=== PATIENT | female | born 1950 | race Caucasian/White ===

== ENCOUNTER 2018-11-06 11:01 | Outpatient (RCR) | payer MEDICARE, OTHER, SELFPAY ==
[2018-11-06 12:16] VITALS: BP 145/77; PULSE 87; RESP 18; TEMP 36.4; BMI 44.9
--- NOTE | 2018-11-06 14:09 | PCM.WC.HP ---
(1) Surgical wound breakdown Status: Chronic Current Visit: Yes Code(s): T81.31XA - Disruption of external operation (surgical) wound, not elsewhere classified, initial encounter (2) Tobacco abuse Status: Chronic Current Visit: Yes Code(s): Z72.0 - Tobacco use History of Present Illness Chief Complaint: Nonhealing surgical wound breakdown. History of Wound: Ms. Sanchez is a 68-year-old who was referred here by orthopedic surgeon due to a nonhealing surgical wound breakdown. Surgery was said to be about 2 months ago and on removal of the stitch had breakdown of the wound. Thought to be due to infection, currently on Bactrim which she has been on for well with still no significant improvement. Some drainage. She denies chills, fever or otherwise feeling of unwell. Questionable history of ongoing right knee infection. Past Medical History Past Medical History: Chronic Problems Surgical wound breakdown (Chronic) Tobacco abuse (Chronic) Review of Systems Constitutional: Denies: Anorexia, Chills, Fever, Night Sweats Eyes: Denies: Blurred vision, Pain HEENT: Denies: Difficulty Swallowing Cardiovascular: Denies: Chest Pain, Chest Pressure Respiratory: Denies: Hemoptysis Gastrointestinal: Reports: Constipation. Denies: Abdominal Pain, Hematemesis, Vomiting Genitourinary: Denies: Hematuria - Physical Exam Vital Signs Temp Pulse Resp BP 97.5 F L 87 18 145/77 H 11/06/18 12:16 11/06/18 12:16 11/06/18 12:16 11/06/18 12:16 General: Alert, Oriented x3, Cooperative, No apparent distress HEENT: Atraumatic, Normocephalic Oral: Moist Mucosa Neck: Supple Lungs: Normal air movement Cardiovascular: Regular rate, Regular Rhythm, Normal S1, Normal S2 Abdomen: Soft, Non Tender, Obese Extremities: No cyanosis Skin: Ulcer/ Wound Wound Measurements and Assessment WC - Nurse 1 - General Ulcer Measurement Start: 11/06/18 12:04 Freq: Status: Active Protocol: Activity Type Activity Date Activity User E-Sign Co-Sign Detail Recorded Client Recorded Date Recorded By Document 11/06/18 12:16 DL [id number] 11/06/18 12:27 DL 11/06/18 12:16 Wound Center Nurse 1 [Ulcer Assessment] #1 right lateral knee -Current Size (cm) - Length 2.4 -Current Size (cm) - Width 1.1 -Current Size (cm) - Depth 1.0 -Total Square Cm 2.64 -Date of Last Picture (Recall this 11/06/18 field) -Photo Taken Yes -Undermining/Tunneling Yes -Undermining/Tunneling Starts (O' 1 clock) -Undermining/Tunneling Ends (O'clock) 4 -Maximum Distance (cm) 0.9 -Classification - Thickness Full Thickness with Exposed Support Structure -Exudate Amt Medium -Exudate Type Serosanguineous -Wound Margin Distinct, Outline Attached -Granulation Amt Medium (34-66%) -Granulation Quality Red -Slough/Fibrin Yes -Necrosis Amt Medium (34-66%) -Necrotic Tissue Type Adherent Slough -Structure Exposed Fat Layer Exposed -Texture (Doris-wound Skin Appearance) Assessed Scarring -Moisture (Doris-wound Skin Appearance Assessed ) -Color (Dorsi-wound Skin Appearance) Assessed -Temperature (Doris-wound Skin No Abnormality Appearance) (Pt Warm) -Tenderness on Palpation (Doris-wound No Skin Appearance) -Ulcer Cleansing Rinsed/ Irrigated with Saline -Foul Odor after Cleansing No -Anesthetic Used 4% Lidocaine Solution WC - Nurse 2 - General Ulcer CM Notes Start: 11/06/18 12:04 Freq: Status: Active Protocol: Activity Type Activity Date Activity User E-Sign Co-Sign Detail Recorded Client Recorded Date Recorded By Document 11/06/18 13:06 MW [id number] 11/06/18 13:15 MW 11/06/18 13:06 Wound Center Nurse 2 [Procedure/Treatment] -Time 13:06 -Correct Patient Yes -Correct Side, Site, Position Yes -Correct Procedure Yes -Procedure Performed Yes -Type of Procedure Debridement -Clinical Debridement Subcutaneous -Post Debridement Size (cm) - Length 2.2 -Post Debridement Size (cm) - Width 1.5 -Post Debridement Size (cm) - Depth 1.6 -Total Square Cm 3.30 -Wound/Ulcer Outcome Not Healed -Ulcer Cleansing Rinsed/ Irrigated with Saline -Foul Odor after Cleansing No -Bioengineered Tissue No -Bleeding Controlled with Pressure -Offloading No -Treatment Response Procedure Tolerated Well [See Physician Procedure note for Specifics] Pain Scale: 0-10 Numeric [Pain] -Is Patient Pain Free? Yes Musculoskeletal: No Muscle Wasting Neurological: Cranial nerves II-XII grossly intact Psych/Mental Status: Normal Affect Debridement Note Post-Debridement Measurements/Treatment WC - Nurse 2 - General Ulcer CM Notes Start: 11/06/18 12:04 Freq: Status: Active Protocol: Activity Type Activity Date Activity User E-Sign Co-Sign Detail Recorded Client Recorded Date Recorded By Document 11/06/18 13:06 MW [id number] 11/06/18 13:15 MW 11/06/18 13:06 Wound Center Nurse 2 #1 right lateral knee -Time 13:06 -Correct Patient Yes -Correct Side, Site, Position Yes -Correct Procedure Yes -Procedure Performed Yes -Type of Procedure Debridement -Clinical Debridement Subcutaneous -Post Debridement Size (cm) - Length 2.2 -Post Debridement Size (cm) - Width 1.5 -Post Debridement Size (cm) - Depth 1.6 -Total Square Cm 3.30 -Wound/Ulcer Outcome Not Healed -Ulcer Cleansing Rinsed/ Irrigated with Saline -Foul Odor after Cleansing No -Bioengineered Tissue No -Bleeding Controlled with Pressure -Offloading No -Treatment Response Procedure Tolerated Well Pain Scale: 0-10 Numeric Is Patient Pain Free? Yes Wound debrided: Right leg Wound Grade/Stage: Stage III Type of Debridement: Excisional debridement Anesthesia Used: 4% Lidocaine Solution Depth: Down to and including healthy tissue, in the subcutaneous layer Percentage of wound debrided: 100 Instrument Used: 5mm curette Tissue Removed: Slough and devitalized tissue Severity: Fat Layer Exposed Amount of bleeding with debridement: Mild Bleeding Controlled with: Pressure Patient tolerated procedure well Assessment/Plan Active Problems Surgical wound breakdown (Chronic) Tobacco abuse (Chronic) Assessment: Nonhealing surgical wound dehiscence of right lower extremity with fat layer exposed. Plan: Debridement done as documented above, procedure was well-tolerated. Moderate slough bordering appreciated however patient with significant tenderness on debridement. Cultures taken. Promogran with snap VAC over top. Leaving placed on Saturday for a nurse visit/change. Increased protein intake and smoking cessation strongly recommended. Also recommended to elevate her lower extremities when seated in bed. Her questions were answered and she was advised to call with any further questions or concerns. Follow-up in 1 week. This note was generated with [employer] software. It may contain incorrect words, spelling, and punctuation that were not noted in checking the note before signing.
--- NOTE | 2018-11-06 14:14 | HP.PCM_ITS ---
(1) Surgical wound breakdown Status: Chronic Current Visit: Yes Code(s): T81.31XA - Disruption of external operation (surgical) wound, not elsewhere classified, initial encounter (2) Tobacco abuse Status: Chronic Current Visit: Yes Code(s): Z72.0 - Tobacco use History of Present Illness Chief Complaint: Nonhealing surgical wound breakdown. History of Wound: Ms. Sanchez is a 68-year-old who was referred here by orthopedic surgeon due to a nonhealing surgical wound breakdown. Surgery was said to be about 2 months ago and on removal of the stitch had breakdown of the wound. Thought to be due to infection, currently on Bactrim which she has been on for well with still no significant improvement. Some drainage. She denies c hills, fever or otherwise feeling of unwell. Questionable history of ongoing right knee infection. Past Medical History Past Medical History: Chronic Problems Surgical wound breakdown (Chronic) Tobacco abuse (Chronic) Review of Systems Constitutional: Denies: Anorexia, Chills, Fever, Night Sweats Eyes: Denies: Blurred vision, Pain HEENT: Denies: Difficulty Swallowing Cardiovascular: Denies: Chest Pain, Chest Pressure Respiratory: Denies: Hemoptysis Gastrointestinal: Reports: Constipation. Denies: Abdominal Pain, Hematemesis, Vomiting Genitourinary: Denies: Hematuria - Physical Exam Vital Signs Temp Pulse Resp BP 97.5 F L 87 18 145/77 H 11/06/18 12:16 11/06/18 12:16 11/06/18 12:16 11/06/18 12:16 General: Alert, Oriented x3, Cooperative, No apparent distress HEENT: Atraumatic, Normocephalic Oral: Moist Mucosa Neck: Supple Lungs: Normal air movement Cardiovascular: Regular rate, Regular Rhythm, Normal S1, Normal S2 Abdomen: Soft, Non Tender, Obese Extremities: No cyanosis Skin: Ulcer/ Wound Wound Measurements and Assessment WC - Nurse 1 - General Ulcer Measurement Start: 11/06/18 12:04 Freq: Status: Active Protocol: Activity Type Activity Date Activity User E-Sign Co-Sign Detail Recorded Client Recorded Date Recorded By Document 11/06/18 12:16 DL [id number] 11/06/18 12:27 DL 11/06/18 12:16 Wound Center Nurse 1 [Ulcer Assessment] #1 right lateral knee -Current Size (cm) - Length 2.4 -Current Size (cm) - Width 1.1 -Current Size (cm) - Depth 1.0 -Total Square Cm 2.64 -Date of Last Picture (Recall this 11/06/18 field) -Photo Taken Yes -Undermining/Tunneling Yes -Undermining/Tunneling Starts (O' 1 clock) -Undermining/Tunneling Ends (O'clock) 4 -Maximum Distance (cm) 0.9 -Classification - Thickness Full Thickness with Exposed Support Structure -Exudate Amt Medium -Exudate Type Serosanguineous -Wound Margin Distinct, Outline Attached -Granulation Amt Medium (34-66%) -Granulation Quality Red -Slough/Fibrin Yes -Necrosis Amt Medium (34-66%) -Necrotic Tissue Type Adherent Slough -Structure Exposed Fat Layer Exposed -Texture (Doris-wound Skin Appearance) Assessed Scarring -Moisture (Doris-wound Skin Appearance Assessed ) -Color (Doris-wound Skin Appearance) Assessed -Temperature (Doris-wound Skin No Abnormality Appearance) (Pt Warm) -Tenderness on Palpation (Doris-wound No Skin Appearance) -Ulcer Cleansing Rinsed/ Irrigated with Saline -Foul Odor after Cleansing No -Anesthetic Used 4% Lidocaine Solution WC - Nurse 2 - General Ulcer CM Notes Start: 11/06/18 12:04 Freq: Status: Active Protocol: Activity Type Activity Date Activity User E-Sign Co-Sign Detail Recorded Client Recorded Date Recorded By Document 11/06/18 13:06 MW [id number] 11/06/18 13:15 MW 11/06/18 13:06 Wound Center Nurse 2 [Procedure/Treatment] -Time 13:06 -Correct Patient Yes -Correct Side, Site, Position Yes -Correct Procedure Yes -Procedure Performed Yes -Type of Procedure Debridement -Clinical Debridement Subcutaneous -Post Debridement Size (cm) - Length 2.2 -Post Debridement Size (cm) - Width 1.5 -Post Debridement Size (cm) - Depth 1.6 -Total Square Cm 3.30 -Wound/Ulcer Outcome Not Healed -Ulcer Cleansing Rinsed/ Irrigated with Saline -Foul Odor after Cleansing No -Bioengineered Tissue No -Bleeding Controlled with Pressure -Offloading No -Treatment Response Procedure Tolerated Well [See Physician Procedure note for Specifics] Pain Scale: 0-10 Numeric [Pain] -Is Patient Pain Free? Yes Musculoskeletal: No Muscle Wasting Neurological: Cranial nerves II-XII grossly intact Psych/Mental Status: Normal Affect Debridement Note Post-Debridement Measurements/Treatment WC - Nurse 2 - General Ulcer CM Notes Start: 11/06/18 12:04 Freq: Status: Active Protocol: Activity Type Activity Date Activity User E-Sign Co-Sign Detail Recorded Client Recorded Date Recorded By Document 11/06/18 13:06 MW [id number] 11/06/18 13:15 MW 11/06/18 13:06 Wound Center Nurse 2 #1 right lateral knee -Time 13:06 -Correct Patient Yes -Correct Side, Site, Position Yes -Correct Procedure Yes -Procedure Performed Yes -Type of Procedure Debridement -Clinical Debridement Subcutaneous -Post Debridement Size (cm) - Length 2.2 -Post Debridement Size (cm) - Width 1.5 -Post Debridement Size (cm) - Depth 1.6 -Total Square Cm 3.30 -Wound/Ulcer Outcome Not Healed -Ulcer Cleansing Rinsed/ Irrigated with Saline -Foul Odor after Cleansing No -Bioengineered Tissue No -Bleeding Controlled with Pressure -Offloading No -Treatment Response Procedure Tolerated Well Pain Scale: 0-10 Numeric Is Patient Pain Free? Yes Wound debrided: Right leg Wound Grade/Stage: Stage III Type of Debridement: Excisional debridement Anesthesia Used: 4% Lidocaine Solution Depth: Down to and including healthy tissue, in the subcutaneous layer Percentage of wound debrided: 100 Instrument Used: 5mm curette Tissue Removed: Slough and devitalized tissue Severity: Fat Layer Exposed Amount of bleeding with debridement: Mild Bleeding Controlled with: Pressure Patient tolerated procedure well Assessment/Plan Active Problems Surgical wound breakdown (Chronic) Tobacco abuse (Chronic) Assessment: Nonhealing surgical wound dehiscence of right lower extremity with fat layer exposed. Plan: Debridement done as documented above, procedure was well-tolerated. Moderate slough bordering appreciated however patient with significant tenderness on debridement. Cultures taken. Promogran with snap VAC over top. Leaving placed on Saturday for a nurse visit/change. Increased protein intake and smoking cessation strongly recommended. Also recommended to elevate her lower extremities when seated in bed. Her questions were answered and she was advised to call with any further questions or concerns. Follow-up in 1 week. This note was generated with [employer] software. It may contain incorrect wo rds, spelling, and punctuation that were not noted in checking the note before signing.
== END 2018-11-07 23:59 ==
LOC: WC 11:01
PROVIDERS: Family Provider Internal Medicine; PCP Internal Medicine; Visit Provider Internal Medicine
DX: T81.31XA Disruption of external operation (surgical) wound, not elsewhere classified, initial encounter (principal); Y83.8 Other surgical procedures as the cause of abnormal reaction of the patient, or of later complication, without mention of misadventure at the time of the procedure; Z72.0 Tobacco use
CPT/HCPCS: 11042; 87070; 87075; 87205; 97607; 99203; G0463

== ENCOUNTER 2018-11-21 10:00 | Outpatient (RCR) | payer MEDICARE, OTHER, SELFPAY ==
[2018-11-08 01:30] VITALS: BP 145/77; PULSE 87; RESP 18; TEMP 36.4
[2018-11-10 12:56] VITALS: BMI 44.9
[2018-11-13 09:57] VITALS: BP 147/85; PULSE 84; RESP 20; TEMP 36; BMI 44.9
--- NOTE | 2018-11-13 11:48 | PCM.WC.PN ---
(1) Surgical wound breakdown Status: Chronic Current Visit: Yes Code(s): T81.31XA - Disruption of external operation (surgical) wound, not elsewhere classified, initial encounter (2) Tobacco abuse Status: Chronic Current Visit: No Code(s): Z72.0 - Tobacco use Type of Wound Chief Complaint: Nonhealing surgical wound breakdown. History of Wound: Ms. Sanchez is a 68-year-old who was referred here by orthopedic surgeon due to a nonhealing surgical wound breakdown. Surgery was said to be about 2 months ago and on removal of the stitch had breakdown of the wound. Thought to be due to infection, currently on Bactrim which she has been on for well with still no significant improvement. Some drainage. She denies chills, fever or otherwise feeling of unwell. Questionable history of ongoing right knee infection. Progress of Wound: mproving. No new concersn at this time. - Physical Exam Vital Signs Temp Pulse Resp BP 96.8 F L 84 20 H 147/85 H 11/13/18 09:57 11/13/18 09:57 11/13/18 09:57 11/13/18 09:57 General: Alert, Oriented x3, Cooperative, No apparent distress HEENT: Atraumatic, Normocephalic Oral: Moist Mucosa Neck: Supple Lungs: Normal air movement Extremities: No cyanosis Skin: Ulcer/ Wound Wound Measurements and Assessment WC - Nurse 1 - General Ulcer Measurement Start: 11/10/18 12:55 Freq: Status: Active Protocol: Activity Type Activity Date Activity User E-Sign Co-Sign Detail Recorded Client Recorded Date Recorded By Document 11/10/18 12:56 DL [id number] 11/10/18 12:59 DL Document 11/13/18 09:57 DL [id number] 11/13/18 10:06 DL 11/10/18 11/13/18 12:56 09:57 Wound Center Nurse 1 [Ulcer Assessment] #1 right lateral knee -Current Size (cm) - Length 2 -Current Size (cm) - Width 0.9 -Current Size (cm) - Depth 0.7 -Total Square Cm 1.8 -Photo Taken No -Undermining/Tunneling Starts (O' 1 clock) -Undermining/Tunneling Ends (O'clock) 2 -Maximum Distance (cm) 0.6 -Circular Undermining No -Exudate Amt Small None Present -Exudate Type Serosanguineous Serosanguineous -Wound Margin Thickened Distinct, Outline Attached -Granulation Amt Large (67-100%) Large (67-100%) -Granulation Quality Red Red -Necrosis Amt Small (1-33%) Small (1-33%) -Necrotic Tissue Type Adherent Slough Adherent Slough -Structure Exposed N/A N/A -Texture (Doris-wound Skin Appearance) Scarring Scarring -Moisture (Doris-wound Skin Appearance Dry/Scaly Maceration ) -Color (Doris-wound Skin Appearance) No Abnormality No Abnormality -Temperature (Doris-wound Skin No Abnormality No Abnormality Appearance) (Pt Warm) (Pt Warm) -Tenderness on Palpation (Doris-wound No Yes Skin Appearance) -Ulcer Cleansing Wound Cleanser Wound Cleanser -Foul Odor after Cleansing No No -Anesthetic Used 4% Lidocaine Solution [Edema Assessment] -Right Calf (cm) 47 -Right Ankle (cm) 22.5 WC - Nurse 2 - General Ulcer CM Notes Start: 11/10/18 12:55 Freq: Status: Active Protocol: Activity Type Activity Date Activity User E-Sign Co-Sign Detail Recorded Client Recorded Date Recorded By Document 11/13/18 10:28 MW [id number] 11/13/18 10:30 MW 11/13/18 10:28 Wound Center Nurse 2 [Procedure/Treatment] #1 right lateral knee -Time 10:28 -Correct Patient Yes -Correct Side, Site, Position Yes -Correct Procedure Yes -Procedure Performed Yes -Type of Procedure Debridement -Clinical Debridement Subcutaneous -Post Debridement Size (cm) - Length 2.0 -Post Debridement Size (cm) - Width 1.3 -Post Debridement Size (cm) - Depth 1.0 -Total Square Cm 2.60 -Wound/Ulcer Outcome Not Healed -Ulcer Cleansing Rinsed/ Irrigated with Saline -Foul Odor after Cleansing No -Bioengineered Tissue No -Bleeding Controlled with Pressure -Offloading No -Treatment Response Procedure Tolerated Well [See Physician Procedure note for Specifics] Pain Scale: 0-10 Numeric [Pain] -Is Patient Pain Free? Yes Musculoskeletal: No Muscle Wasting Neurological: Cranial nerves II-XII grossly intact Psych/Mental Status: Normal Affect Debridement Note Post-Debridement Measurements/Treatment WC - Nurse 2 - General Ulcer CM Notes Start: 11/10/18 12:55 Freq: Status: Active Protocol: Activity Type Activity Date Activity User E-Sign Co-Sign Detail Recorded Client Recorded Date Recorded By Document 11/13/18 10:28 MW [id number] 11/13/18 10:30 MW 11/13/18 10:28 Wound Center Nurse 2 #1 right lateral knee -Time 10:28 -Correct Patient Yes -Correct Side, Site, Position Yes -Correct Procedure Yes -Procedure Performed Yes -Type of Procedure Debridement -Clinical Debridement Subcutaneous -Post Debridement Size (cm) - Length 2.0 -Post Debridement Size (cm) - Width 1.3 -Post Debridement Size (cm) - Depth 1.0 -Total Square Cm 2.60 -Wound/Ulcer Outcome Not Healed -Ulcer Cleansing Rinsed/ Irrigated with Saline -Foul Odor after Cleansing No -Bioengineered Tissue No -Bleeding Controlled with Pressure -Offloading No -Treatment Response Procedure Tolerated Well Pain Scale: 0-10 Numeric Is Patient Pain Free? Yes Wound debrided: Right leg Wound Grade/Stage: Stage III Type of Debridement: Excisional debridement Anesthesia Used: 4% Lidocaine Solution Depth: Down to and including healthy tissue, in the subcutaneous layer Percentage of wound debrided: 100 Instrument Used: 5mm curette Tissue Removed: Slough and devitalized tissue Severity: Fat Layer Exposed Amount of bleeding with debridement: Mild Bleeding Controlled with: Pressure Patient tolerated procedure well Assessment/Plan Active Problems Surgical wound breakdown (Chronic) Assessment: Nonhealing surgical wound dehiscence of right lower extremity with fat layer exposed. Plan: Improving. No new concerns. Debridement done as documented above, procedure was well-tolerated. Cultures with no growth. Continue Promogran with snap VAC over top. Follow up on Saturday for a nurse visit/change. Increased protein intake and smoking cessation strongly recommended. Also recommended to elevate her lower extremities when seated in bed. Her questions were answered and she was advised to call with any further questions or concerns. Follow-up in 1 week for a courtesy visit. This note was generated with [employer] software. It may contain incorrect words, spelling, and punctuation that were not noted in checking the note before signing.
--- NOTE | 2018-11-13 11:52 | PN.PCM_ITS ---
(1) Surgical wound breakdown Status: Chronic Current Visit: Yes Code(s): T81.31XA - Disruption of external operation (surgical) wound, not elsewhere classified, initial encounter (2) Tobacco abuse Status: Chronic Current Visit: No Code(s): Z72.0 - Tobacco use Type of Wound Chief Complaint: Nonhealing surgical wound breakdown. History of Wound: Ms. Sanchez is a 68-year-old who was referred here by orthopedic surgeon due to a nonhealing surgical wound breakdown. Surgery was said to be about 2 months ago and on removal of the stitch had breakdown of the wound. Thought to be due to infection, currently on Bactrim which she has been on for well with still no significant improvement. Some drainage. She denies chills, fever or otherwise feeling of unwell. Questionable history of ongoing right knee infection. Progress of Wound: mproving. No new concersn at this time. - Physical Exam Vital Signs Temp Pulse Resp BP 96.8 F L 84 20 H 147/85 H 11/13/18 09:57 11/13/18 09:57 11/13/18 09:57 11/13/18 09:57 General: Alert, Oriented x3, Cooperative, No apparent distress HEENT: Atraumatic, Normocephalic Oral: Moist Mucosa Neck: Supple Lungs: Normal air movement Extremities: No cyanosis Skin: Ulcer/ Wound Wound Measurements and Assessment WC - Nurse 1 - General Ulcer Measurement Start: 11/10/18 12:55 Freq: Status: Active Protocol: Activity Type Activity Date Activity User E-Sign Co-Sign Detail Recorded Client Recorded Date Recorded By Document 11/10/18 12:56 DL [id number] 11/10/18 12:59 DL Document 11/13/18 09:57 DL [id number] 11/13/18 10:06 DL 11/10/18 11/13/18 12:56 09:57 Wound Center Nurse 1 [Ulcer Assessment] #1 right lateral knee -Current Size (cm) - Length 2 -Current Size (cm) - Width 0.9 -Current Size (cm) - Depth 0.7 -Total Square Cm 1.8 -Photo Taken No -Undermining/Tunneling Starts (O' 1 clock) -Undermining/Tunneling Ends (O'clock) 2 -Maximum Distance (cm) 0.6 -Circular Undermining No -Exudate Amt Small None Present -Exudate Type Serosanguineous Serosanguineous -Wound Margin Thickened Distinct, Outline Attached -Granulation Amt Large (67-100%) Large (67-100%) -Granulation Quality Red Red -Necrosis Amt Small (1-33%) Small (1-33%) -Necrotic Tissue Type Adherent Slough Adherent Slough -Structure Exposed N/A N/A -Texture (Doris-wound Skin Appearance) Scarring Scarring -Moisture (Doris-wound Skin Appearance Dry/Scaly Maceration ) -Color (Doris-wound Skin Appearance) No Abnormality No Abnormality -Temperature (Doris-wound Skin No Abnormality No Abnormality Appearance) (Pt Warm) (Pt Warm) -Tenderness on Palpation (Doris-wound No Yes Skin Appearance) -Ulcer Cleansing Wound Cleanser Wound Cleanser -Foul Odor after Cleansing No No -Anesthetic Used 4% Lidocaine Solution [Edema Assessment] -Right Calf (cm) 47 -Right Ankle (cm) 22.5 WC - Nurse 2 - General Ulcer CM Notes Start: 11/10/18 12:55 Freq: Status: Active Protocol: Activity Type Activity Date Activity User E-Sign Co-Sign Detail Recorded Client Recorded Date Recorded By Document 11/13/18 10:28 MW [id number] 11/13/18 10:30 MW 11/13/18 10:28 Wound Center Nurse 2 [Procedure/Treatment] #1 right lateral knee -Time 10:28 -Correct Patient Yes -Correct Side, Site, Position Yes -Correct Procedure Yes -Procedure Performed Yes -Type of Procedure Debridement -Clinical Debridement Subcutaneous -Post Debridement Size (cm) - Length 2.0 -Post Debridement Size (cm) - Width 1.3 -Post Debridement Size (cm) - Depth 1.0 -Total Square Cm 2.60 -Wound/Ulcer Outcome Not Healed -Ulcer Cleansing Rinsed/ Irrigated with Saline -Foul Odor after Cleansing No -Bioengineered Tissue No -Bleeding Controlled with Pressure -Offloading No -Treatment Response Procedure Tolerated Well [See Physician Procedure note for Specifics] Pain Scale: 0-10 Numeric [Pain] -Is Patient Pain Free? Yes Musculoskeletal: No Muscle Wasting Neurological: Cranial nerves II-XII grossly intact Psych/Mental Status: Normal Affect Debridement Note Post-Debridement Measurements/Treatment WC - Nurse 2 - General Ulcer CM Notes Start: 11/10/18 12:55 Freq: Status: Active Protocol: Activity Type Activity Date Activity User E-Sign Co-Sign Detail Recorded Client Recorded Date Recorded By Document 11/13/18 10:28 MW [id number] 11/13/18 10:30 MW 11/13/18 10:28 Wound Center Nurse 2 #1 right lateral knee -Time 10:28 -Correct Patient Yes -Correct Side, Site, Position Yes -Correct Procedure Yes -Procedure Performed Yes -Type of Procedure Debridement -Clinical Debridement Subcutaneous -Post Debridement Size (cm) - Length 2.0 -Post Debridement Size (cm) - Width 1.3 -Post Debridement Size (cm) - Depth 1.0 -Total Square Cm 2.60 -Wound/Ulcer Outcome Not Healed -Ulcer Cleansing Rinsed/ Irrigated with Saline -Foul Odor after Cleansing No -Bioengineered Tissue No -Bleeding Controlled with Pressure -Offloading No -Treatment Response Procedure Tolerated Well Pain Scale: 0-10 Numeric Is Patient Pain Free? Yes Wound debrided: Right leg Wound Grade/Stage: Stage III Type of Debridement: Excisional debridement Anesthesia Used: 4% Lidocaine Solution Depth: Down to and including healthy tissue, in the subcutaneous layer Percentage of wound debrided: 100 Instrument Used: 5mm curette Tissue Removed: Slough and devitalized tissue Severity: Fat Layer Exposed Amount of bleeding with debridement: Mild Bleeding Controlled with: Pressure Patient tolerated procedure well Assessment/Plan Active Problems Surgical wound breakdown (Chronic) Assessment: Nonhealing surgical wound dehiscence of right lower extremity with fat layer exposed. Plan: Improving. No new concerns. Debridement done as documented above, pro cedure was well-tolerated. Cultures with no growth. Continue Promogran with snap VAC over top. Follow up on Saturday for a nurse visit/change. Increased protein intake and smoking cessation strongly recommended. Also recommended to elevate her lower extremities when seated in bed. Her questions were answered and she was advised to call with any further questions or concerns. Follow-up in 1 week for a courtesy visit. This note was generated with [employer] dictation software. It may contain incorrect words, spelling, and punctuation that were not noted in checking the note before signing.
[2018-11-21 09:42] VITALS: BP 156/87; PULSE 94; RESP 18; TEMP 36.9; BMI 44.9
--- NOTE | 2018-11-21 17:37 | PCM.WC.HP ---
(1) Surgical wound breakdown Status: Chronic Current Visit: Yes Qualifiers: Encounter type: subsequent encounter Qualified Code(s): T81.31XD - Disruption of external operation (surgical) wound, not elsewhere classified, subsequent encounter Code(s): T81.31XA - Disruption of external operation (surgical) wound, not elsewhere classified, initial encounter (2) Tobacco abuse Status: Chronic Current Visit: Yes Code(s): Z72.0 - Tobacco use History of Present Illness Date of Service: 11/21/18 Chief Complaint: Nonhealing surgical wound breakdown. History of Wound: Ms. Sanchez is a 68-year-old who was referred here by her orthopedic surgeon due to a nonhealing surgical wound breakdown. Surgery was said to be about 2 months ago and on removal of the stitch had breakdown of the wound. This was thought to be due to infection, she has completed Bactrim. She has heavy drainage. She denies chills, fever or otherwise feeling unwell. She reports that there were screws in her knee that were infected and removed which were causing the infection. She is seen today as a courtesy visit for Dr. Watson. She did well with snap vac and denies any concerns today. Past Medical History Past Medical History: Chronic Problems Surgical wound breakdown (Chronic) Tobacco abuse (Chronic) Past Medical History: Cancer Surgical History: total knee arthroplasty Allergies/Adverse Reactions: Allergies No Known Allergies Allergy (Verified 11/21/18 18:03) Home Medications: Ambulatory Orders Medication Instructions Recorded Celebrex 11/21/18 - Family History Maternal No pertinent history Paternal No pertinent history Lives: Alone Smoking Status: Current every day smoker Tobacco Use: Cigarettes Alcohol: None Drugs: None Review of Systems Constitutional: Denies: Chills, Fever, Weight Change Eyes: Denies: Pain, Vision Change HEENT: Denies: Difficulty Hearing, Difficulty Swallowing, Sinus Congestion Cardiovascular: Denies: Chest Pain, Palpitations Respiratory: Denies: Cough, Shortness of Breath Gastrointestinal: Denies: Diarrhea, Nausea, Vomiting Genitourinary: Denies: Dysuria, Hematuria Musculoskeletal: Reports: Joint Pain, Joint stiffness Skin: Reports: Wounds Endocrine: Denies: Heat/ Cold Intolerance, Polydipsia, Polyuria Hematologic/ Lymphatic: Denies: Easy Bruising, Easy Bleeding - Physical Exam Vital Signs Temp Pulse Resp BP 98.4 F 94 18 156/87 H 11/21/18 09:42 11/21/18 09:42 11/21/18 09:42 11/21/18 09:42 General: Alert, Oriented x3, Cooperative, No apparent distress HEENT: Atraumatic, Normocephalic Oral: Moist Mucosa Neck: Supple Lungs: Clear to auscultation Abdomen: Obese Extremities: Edema Skin: Ulcer/ Wound Wound Measurements and Assessment WC - Nurse 1 - General Ulcer Measurement Start: 11/10/18 12:55 Freq: Status: Active Protocol: Activity Type Activity Date Activity User E-Sign Co-Sign Detail Recorded Client Recorded Date Recorded By Document 11/21/18 09:42 [facility] [id number] 11/21/18 09:48 [facility] 11/21/18 09:42 Wound Center Nurse 1 [Ulcer Assessment] #1 right lateral knee -Combined with other wound No -Current Size (cm) - Length 1.6 -Current Size (cm) - Width 0.8 -Current Size (cm) - Depth 0.5 -Total Square Cm 1.28 -Photo Taken No -Epithelialization None Present -Tunneling No -Undermining/Tunneling No -Circular Undermining No -Exudate Amt Small -Exudate Type Serosanguineous -Wound Margin Distinct, Outline Attached -Granulation Amt Large (67-100%) -Granulation Quality Red -Slough/Fibrin No -Necrosis Amt None Present (0 %) -Structure Exposed None/Limited to Skin Breakdown -Texture (Doris-wound Skin Appearance) Scarring -Moisture (Doris-wound Skin Appearance Maceration ) -Color (Doris-wound Skin Appearance) Palor -Temperature (Doris-wound Skin No Abnormality Appearance) (Pt Warm) -Tenderness on Palpation (Doris-wound No Skin Appearance) -Ulcer Cleansing Rinsed/ Irrigated with Saline -Foul Odor after Cleansing No -Anesthetic Used 5% Lidocaine Gel [Edema Assessment] -Lower Limb Edema Present No WC - Nurse 2 - General Ulcer CM Notes Start: 11/10/18 12:55 Freq: Status: Active Protocol: Activity Type Activity Date Activity User E-Sign Co-Sign Detail Recorded Client Recorded Date Recorded By Document 11/21/18 10:20 DV [id number] 11/21/18 10:23 DV 11/21/18 10:20 Wound Center Nurse 2 [Procedure/Treatment] #1 right lateral knee -Time 10:21 -Correct Patient Yes -Correct Side, Site, Position Yes -Correct Procedure Yes -Procedure Performed Yes -Type of Procedure Debridement -Clinical Debridement Subcutaneous -Post Debridement Size (cm) - Length 1.8 -Post Debridement Size (cm) - Width 1.3 -Post Debridement Size (cm) - Depth 0.7 -Total Square Cm 2.34 -Wound/Ulcer Outcome Not Healed -Ulcer Cleansing Rinsed/ Irrigated with Saline -Foul Odor after Cleansing No -Bioengineered Tissue No -Bleeding Controlled with Pressure -Offloading No -Treatment Response Procedure Tolerated Well [See Physician Procedure note for Specifics] Pain Scale: 0-10 Numeric [Pain] -Is Patient Pain Free? Yes Psych/Mental Status: Normal Affect, Appropriate Debridement Note Post-Debridement Measurements/Treatment WC - Nurse 2 - General Ulcer CM Notes Start: 11/10/18 12:55 Freq: Status: Active Protocol: Activity Type Activity Date Activity User E-Sign Co-Sign Detail Recorded Client Recorded Date Recorded By Document 11/13/18 10:28 MW [id number] 11/13/18 10:30 MW Document 11/21/18 10:20 DV [id number] 11/21/18 10:23 DV 11/13/18 11/21/18 10:28 10:20 Wound Center Nurse 2 #1 right lateral knee -Time 10:28 10:21 -Correct Patient Yes Yes -Correct Side, Site, Position Yes Yes -Correct Procedure Yes Yes -Procedure Performed Yes Yes -Type of Procedure Debridement Debridement -Clinical Debridement Subcutaneous Subcutaneous -Post Debridement Size (cm) - Length 2.0 1.8 -Post Debridement Size (cm) - Width 1.3 1.3 -Post Debridement Size (cm) - Depth 1.0 0.7 -Total Square Cm 2.60 2.34 -Wound/Ulcer Outcome Not Healed Not Healed -Ulcer Cleansing Rinsed/ Rinsed/ Irrigated with Irrigated with Saline Saline -Foul Odor after Cleansing No No -Bioengineered Tissue No No -Bleeding Controlled with Pressure Pressure -Offloading No No -Treatment Response Procedure Procedure Tolerated Well Tolerated Well Pain Scale: 0-10 Numeric Is Patient Pain Free? Yes Yes Wound debrided: right lateral knee Laterality: Right Type of Debridement: Excisional debridement Anesthesia Used: 4% Lidocaine Solution, 5% Lidocaine Gel Depth: Down to and including healthy tissue, in the subcutaneous layer Percentage of wound debrided: 100 Instrument Used: 5mm curette Tissue Removed: yellow slough, devitalized tissue Severity: Fat Layer Exposed Amount of bleeding with debridement: Mild Bleeding Controlled with: Compression and gauze Patient tolerated procedure well Assessment/Plan Active Problems Surgical wound breakdown (Chronic) Tobacco abuse (Chronic) Assessment: Nonhealing surgical wound dehiscence of right lower extremity with fat layer exposed. Plan: Yi is showing improvement. Debridement done as documented above, procedure was well-tolerated. Continue Promogran with snap VAC over top. Follow up 1 week for snap vac change. Increased protein intake and smoking cessation strongly recommended. Also recommended to elevate her lower extremities when seated in bed. Her questions were answered and she was advised to call with any further questions or concerns. Follow-up in 1 week. This note was generated with [employer] dictation software. It may contain incorrect words, spelling, and punctuation that were not noted in checking the note before signing.
--- NOTE | 2018-11-21 17:41 | HP.PCM_ITS ---
(1) Surgical wound breakdown Status: Chronic Current Visit: Yes Qualifiers: Encounter type: subsequent encounter Qualified Code(s): T81.31XD - Disruption of external operation (surgical) wound, not elsewhere classified, subsequent encounter Code(s): T81.31XA - Disruption of external operation (surgical) wound, not elsewhere classified, initial encounter (2) Tobacco abuse Status: Chronic Current Visit: Yes Code(s): Z72.0 - Tobacco use History of Present Illness Date of Service: 11/21/18 Chief Complaint: Nonhealing surgical wound breakdown. History of Wound: Ms. Sanchez is a 68-year-old who was referred here by her orthopedic surgeon due to a nonhealing surgical wound breakdown. Surgery was said to be about 2 months ago and on removal of the stitch had breakdown of the wound. This was thought to be due to infection, she has completed Bactrim. She has heavy drainage. She denies chills, fever or otherwise feeling unwell. She reports that there were screws in her knee that were infected and removed which were causing the infection. She is seen today as a courtesy visit for Dr. Watson. She did well with snap vac and denies any concerns today. Past Medical History Past Medical History: Chronic Problems Surgical wound breakdown (Chronic) Tobacco abuse (Chronic) Past Medical History: Cancer Surgical History: total knee arthroplasty Allergies/Adverse Reactions: Allergies No Known Allergies Allergy (Verified 11/21/18 18:03) Home Medications: Ambulatory Orders Medication Instructions Recorded Celebrex 11/21/18 - Family History Maternal No pertinent history Paternal No pertinent history Lives: Alone Smoking Status: Current every day smoker Tobacco Use: Cigarettes Alcohol: None Drugs: None Review of Systems Constitutional: Denies: Chills, Fever, Weight Change Eyes: Denies: Pain, Vision Change HEENT: Denies: Difficulty Hearing, Difficulty Swallowing, Sinus Congestion Cardiovascular: Denies: Chest Pain, Palpitations Respiratory: Denies: Cough, Shortness of Breath Gastrointestinal: Denies: Diarrhea, Nausea, Vomiting Genitourinary: Denies: Dysuria, Hematuria Musculoskeletal: Reports: Joint Pain, Joint stiffness Skin: Reports: Wounds Endocrine: Denies: Heat/ Cold Intolerance, Polydipsia, Polyuria Hematologic/ Lymphatic: Denies: Easy Bruising, Easy Bleeding - Physical Exam Vital Signs Temp Pulse Resp BP 98.4 F 94 18 156/87 H 11/21/18 09:42 11/21/18 09:42 11/21/18 09:42 11/21/18 09:42 General: Alert, Oriented x3, Cooperative, No apparent distress HEENT: Atraumatic, Normocephalic Oral: Moist Mucosa Neck: Supple Lungs: Clear to auscultation Abdomen: Obese Extremities: Edema Skin: Ulcer/ Wound Wound Measurements and Assessment WC - Nurse 1 - General Ulcer Measurement Start: 11/10/18 12:55 Freq: Status: Active Protocol: Activity Type Activity Date Activity User E-Sign Co-Sign Detail Recorded Client Recorded Date Recorded By Document 11/21/18 09:42 [facility] [id number] 11/21/18 09:48 [facility] 11/21/18 09:42 Wound Center Nurse 1 [Ulcer Assessment] #1 right lateral knee -Combined with other wound No -Current Size (cm) - Length 1.6 -Current Size (cm) - Width 0.8 -Current Size (cm) - Depth 0.5 -Total Square Cm 1.28 -Photo Taken No -Epithelialization None Present -Tunneling No -Undermining/Tunneling No -Circular Undermining No -Exudate Amt Small -Exudate Type Serosanguineous -Wound Margin Distinct, Outline Attached -Granulation Amt Large (67-100%) -Granulation Quality Red -Slough/Fibrin No -Necrosis Amt None Present (0 %) -Structure Exposed None/Limited to Skin Breakdown -Texture (Doris-wound Skin Appearance) Scarring -Moisture (Doris-wound Skin Appearance Maceration ) -Color (Doris-wound Skin Appearance) Palor -Temperature (Doris-wound Skin No Abnormality Appearance) (Pt Warm) -Tenderness on Palpation (Doris-wound No Skin Appearance) -Ulcer Cleansing Rinsed/ Irrigated with Saline -Foul Odor after Cleansing No -Anesthetic Used 5% Lidocaine Gel [Edema Assessment] -Lower Limb Edema Present No WC - Nurse 2 - General Ulcer CM Notes Start: 11/10/18 12:55 Freq: Status: Active Protocol: Activity Type Activity Date Activity User E-Sign Co-Sign Detail Recorded Client Recorded Date Recorded By Document 11/21/18 10:20 DV [id number] 11/21/18 10:23 DV 11/21/18 10:20 Wound Center Nurse 2 [Procedure/Treatment] #1 right lateral knee -Time 10:21 -Correct Patient Yes -Correct Side, Site, Position Yes -Correct Procedure Yes -Procedure Performed Yes -Type of Procedure Debridement -Clinical Debridement Subcutaneous -Post Debridement Size (cm) - Length 1.8 -Post Debridement Size (cm) - Width 1.3 -Post Debridement Size (cm) - Depth 0.7 -Total Square Cm 2.34 -Wound/Ulcer Outcome Not Healed -Ulcer Cleansing Rinsed/ Irrigated with Saline -Foul Odor after Cleansing No -Bioengineered Tissue No -Bleeding Controlled with Pressure -Offloading No -Treatment Response Procedure Tolerated Well [See Physician Procedure note for Specifics] Pain Scale: 0-10 Numeric [Pain] -Is Patient Pain Free? Yes Psych/Mental Status: Normal Affect, Appropriate Debridement Note Post-Debridement Measurements/Treatment WC - Nurse 2 - General Ulcer CM Notes Start: 11/10/18 12:55 Freq: Status: Active Protocol: Activity Type Activity Date Activity User E-Sign Co-Sign Detail Recorded Client Recorded Date Recorded By Document 11/13/18 10:28 MW [id number] 11/13/18 10:30 MW Document 11/21/18 10:20 DV [id number] 11/21/18 10:23 DV 11/13/18 11/21/18 10:28 10:20 Wound Center Nurse 2 #1 right lateral knee -Time 10:28 10:21 -Correct Patient Yes Yes -Correct Side, Site, Position Yes Yes -Correct Procedure Yes Yes -Procedure Performed Yes Yes -Type of Procedure Debridement Debridement -Clinical Debridement Subcutaneous Subcutaneous -Post Debridement Size (cm) - Length 2.0 1.8 -Post Debridement Size (cm) - Width 1.3 1.3 -Post Debridement Size (cm) - Depth 1.0 0.7 -Total Square Cm 2.60 2.34 -Wound/Ulcer Outcome Not Healed Not Healed -Ulcer Cleansing Rinsed/ Rinsed/ Irrigated with Irrigated with Saline Saline -Foul Odor after Cleansing No No -Bioengineered Tissue No No -Bleeding Controlled with Pressure Pressure -Offloading No No -Treatment Response Procedure Procedure Tolerated Well Tolerated Well Pain Scale: 0-10 Numeric Is Patient Pain Free? Yes Yes Wound debrided: right lateral knee Laterality: Right Type of Debridement: Excisional debridement Anesthesia Used: 4% Lidocaine Solution, 5% Lidocaine Gel Depth: Down to and including healthy tissue, in the subcutaneous layer Percentage of wound debrided: 100 Instrument Used: 5mm curette Tissue Removed: yellow slough, devitalized tissue Severity: Fat Layer Exposed Amount of bleeding with debridement: Mild Bleeding Controlled with: Compression and gauze Patient tolerated procedure well Assessment/Plan Active Problems Surgical wound breakdown (Chronic) Tobacco abuse (Chronic) Assessment: Nonhealing surgical wound dehiscence of right lower extremity with fat layer exposed. Plan: Yi is showing improvement. Debridement done as documented above, procedure was well-tolerated. Continue Promogran with snap VAC over top. Follow up 1 week for snap vac change. Increased protein intake and smoking cessation strongly recommended. Also recommended to elevate her lower extremities when seated in bed. Her questions were answered and she was advised to call with any further questions or concerns. Follow-up in 1 week. This note was generated with [employer] dictation software. It may contain incorrect words, spelling, and punctuation that were not noted in checking the note before signing.
== END 2018-12-07 23:59 ==
LOC: WC 10:00
PROVIDERS: Family Provider Internal Medicine; PCP Internal Medicine; Visit Provider Internal Medicine
DX: T81.31XA Disruption of external operation (surgical) wound, not elsewhere classified, initial encounter (principal); Y83.8 Other surgical procedures as the cause of abnormal reaction of the patient, or of later complication, without mention of misadventure at the time of the procedure; Z72.0 Tobacco use
CPT/HCPCS: 11042; 97605; 97607; 99211; G0463